=== PATIENT | male | born 1975 | race African-American/Black ===

== ENCOUNTER 2022-07-30 01:27 | Observation (INO) | payer OTHER ==
[~2022-07-30] VITALS: Ht 172.7 cm; Wt 104.3 kg
[2022-07-30] VITALS (56 sets, daily range): BP systolic 74–175; BP diastolic 55–122
[~2022-07-30 01:27] MED LIST: AMITRIPTYLIN10 MG OR; ASPIRIN EC81 MG PO; BENADRYL 50MG C50 MG OR; CELEXA10 MG PO; COLACE100 MG OR; LOPRESSOR25 M1 PO; OLANZAPINE5 MG PO; SIMVASTATIN20 MG PO; TEGRETOL200 MG PO; ZIPRASIDONE HCL20 MG PO; ZYPREXA2.5 MG PO; [UNRECOGNIZED DRUG - OTHER] OR
[2022-07-30 01:55] LABS: BASO% 0.6 % (0-3); EOS% 1.5 % (0-8); HEMATOCRIT 44.1 % (39.0-50.0); HEMOGLOBIN 14.2 g/dl (14.0-18.0); IMMATURE GRANULOCYTES 0.6 % (0.0-5.0); LYMPH% 18.8 % (15-41); MEAN CELL VOLUME 81.8 fL CALC (80.0-100.0); MEAN CORPUSCULAR HGB 26.3 pG CALC (26.0-32.0); MEAN CORPUSCULAR HGB CONC 32.2 g/dL CAL (32.0-36.0); MONO% 6.3 % (2-13); NEUT# 4.68 thou/uL (1.82-7.42); NEUT% 72.2 % (42-76); RED BLOOD COUNT 5.39 mill/uL (4.70-6.10); RED CELL DISTRI WIDTH 16.1 % (11.5-15.5)
[2022-07-30 02:12] LABS: GFR FOR AFR.AMER. > 60 ML/MIN (>=60 (CALC)); GFR OTHER RACES > 60 ML/MIN (>=60 (CALC))
[2022-07-30 02:18] LABS: ALBUMIN 4.7 g/dL (3.2-5.0); ALKALINE PHOSPHATASE 85 u/l (38-126); BILIRUBIN, TOTAL 0.4 mg/dL (0.2-1.3); BUN 11 mg/dL (9-20); BUN/CREATININE RATIO 13 (12-20 (CALC)); CARBON DIOXIDE 26 mmol/l (22-30); CHLORIDE 103 mmol/l (95-108); CREATININE 0.8 mg/dL (0.7-1.3); GFR FOR AFR.AMER. > 60 ML/MIN (>=60 (CALC)); GFR OTHER RACES > 60 ML/MIN (>=60 (CALC)); SGOT/AST 41 u/l (17-59); SODIUM 140 mmol/l (137-146); TOTAL PROTEIN 8.5 g/dL (6.3-8.2)
[2022-07-30 02:18] LABS: PROTHROMBIN TIME 9.9 SECONDS (9.0-12.5)
[2022-07-30 02:26] LABS: ANION GAP 15 (6-22 (CALC)); POTASSIUM 3.5 mmol/l (3.5-5.1)
[2022-07-30 04:14] LABS: URINE BILIRUBIN - DIPSTICK NEGATIVE (NEGATIVE); URINE BLOOD DIPSTICK NEGATIVE (NEGATIVE); URINE COLOR YELLOW; URINE GLUCOSE - DIPSTICK NEGATIVE (NEGATIVE); URINE KETONE NEGATIVE (NEGATIVE); URINE LEUK ESTERASE NEGATIVE (NEGATIVE); URINE NITRITE - DIPSTICK NEGATIVE (Negative); URINE PROTEIN - DIPSTICK NEGATIVE (NEG-TRACE); URINE UROBILINOGEN - DIPSTICK 0.2 E.U./dL (0.2)
[2022-07-30] MEDS ORDERED: ATORVASTATIN CA20 MG PO (04:40)
[2022-07-30] MEDS ORDERED: SEROQUEL100 MG PO (04:40)
[2022-07-30] MEDS ORDERED: ZOLOFT100 MG PO (04:41)
[2022-07-31] VITALS (25 sets, daily range): BP systolic 101–144; BP diastolic 54–82
[2022-07-31 05:20] LABS: BASO% 0.1 % (0-3); HEMATOCRIT 42.3 % (39.0-50.0); HEMOGLOBIN 13.9 g/dl (14.0-18.0); IMMATURE GRANULOCYTES 0.9 % (0.0-5.0); LYMPH% 8.3 % (15-41); MEAN CORPUSCULAR HGB 26.9 pG CALC (26.0-32.0); MEAN CORPUSCULAR HGB CONC 32.9 g/dL CAL (32.0-36.0); MONO% 5.2 % (2-13); NEUT# 11.86 thou/uL (1.82-7.42); NEUT% 85.5 % (42-76); RED BLOOD COUNT 5.16 mill/uL (4.70-6.10); RED CELL DISTRI WIDTH 16.6 % (11.5-15.5)
[2022-07-31 05:36] LABS: ALBUMIN 4.5 g/dL (3.2-5.0); ALKALINE PHOSPHATASE 79 u/l (38-126); BILIRUBIN, TOTAL 0.5 mg/dL (0.2-1.3); BUN 19 mg/dL (9-20); BUN/CREATININE RATIO 22 (12-20 (CALC)); CARBON DIOXIDE 24 mmol/l (22-30); CHLORIDE 109 mmol/l (95-108); CREATININE 0.9 mg/dL (0.7-1.3); GFR FOR AFR.AMER. > 60 ML/MIN (>=60 (CALC)); GFR OTHER RACES > 60 ML/MIN (>=60 (CALC)); SGOT/AST 28 u/l (17-59); SODIUM 140 mmol/l (137-146); TOTAL PROTEIN 8.2 g/dL (6.3-8.2)
[2022-07-31 05:45] LABS: ANION GAP 12 (6-22 (CALC))
[2022-08-01] VITALS (8 sets, daily range): BP systolic 113–141; BP diastolic 71–81
[2022-08-01 05:40] LABS: BASO% 0.2 % (0-3); HEMATOCRIT 41.4 % (39.0-50.0); HEMOGLOBIN 13.2 g/dl (14.0-18.0); IMMATURE GRANULOCYTES 0.2 % (0.0-5.0); LYMPH% 27.1 % (15-41); MEAN CORPUSCULAR HGB 26.5 pG CALC (26.0-32.0); MEAN CORPUSCULAR HGB CONC 31.9 g/dL CAL (32.0-36.0); MONO% 6.7 % (2-13); NEUT# 6.34 thou/uL (1.82-7.42); NEUT% 64.8 % (42-76); RED BLOOD COUNT 4.99 mill/uL (4.70-6.10); RED CELL DISTRI WIDTH 17.1 % (11.5-15.5)
[2022-08-01 06:19] LABS: ANION GAP 12 (6-22 (CALC)); BUN 25 mg/dL (9-20); BUN/CREATININE RATIO 23 (12-20 (CALC)); CARBON DIOXIDE 27 mmol/l (22-30); CHLORIDE 110 mmol/l (95-108); GFR FOR AFR.AMER. > 60 ML/MIN (>=60 (CALC)); GFR OTHER RACES > 60 ML/MIN (>=60 (CALC)); POTASSIUM 4.2 mmol/l (3.5-5.1); SODIUM 145 mmol/l (137-146)
[2022-08-01] MEDS ORDERED: LEVETIRACETAM500 MG PO (13:25)
== END 2022-08-01 16:07 | disposition designated cancer center or children's hospital (05) | DRG 101 ==
LOC: ED 01:27 → ED-I 13:23 → ED 13:34 → ICU 13:35
PROVIDERS: Emergency Medicine; ADMIT Internal Medicine; ATTEND Internal Medicine
DX: G40.909 Epilepsy, unspecified, not intractable, without status epilepticus (principal); F20.89 Other schizophrenia; J40 Bronchitis, not specified as acute or chronic; I10 Essential (primary) hypertension; E78.00 Pure hypercholesterolemia, unspecified; G62.9 Polyneuropathy, unspecified; F19.10 Other psychoactive substance abuse, uncomplicated; Z91.041 Radiographic dye allergy status
CPT/HCPCS: Q9967